=== PATIENT | female | born 1980 | race Caucasian/White ===

== ENCOUNTER 2017-02-08 20:23 | Emergency (ER) | payer SELFPAY ==
[2017-02-08] MEDS ORDERED: Lidocaine 1% w/Epinephrine 1:100K 20 ML VIAL ONE (20:40)
[2017-02-08] MEDS ORDERED: Cephalexin 500 MG CAP ONE (20:50)
== END 2017-02-08 21:11 | disposition home or self-care (01) ==
LOC: MADERS 20:23
DX: L72.0 Epidermal cyst (principal); J45.909 Unspecified asthma, uncomplicated; F17.210 Nicotine dependence, cigarettes, uncomplicated
CPT/HCPCS: 69000; 87070; 87205; J2001

== ENCOUNTER 2017-07-22 08:15 | Emergency (ER) | payer SELFPAY | END 2017-07-22 09:00 | disposition home or self-care (01) | LOC: MADERS 08:15 | DX: J20.9 Acute bronchitis, unspecified (principal); J45.909 Unspecified asthma, uncomplicated; F17.210 Nicotine dependence, cigarettes, uncomplicated | CPT/HCPCS: 99283 ==

== ENCOUNTER 2018-01-31 14:48 | Emergency (ER) | payer MEDICAID, SELFPAY ==
[~2018-01-31 14:48] MED LIST: Sodium Chloride 0.9% 1,000 ML BAG ONE
[2018-01-31 15:20] LABS: Bilirubin Negative (Negative); Blood, Urine Negative (Negative); Glucose, Urine (Dipstick) Negative (Negative); Leukocyte Negative (Negative); Nitrite Negative (Negative); Protein, Urine (Dipstick) Negative (Neg-Trace); Specific Gravity, Urine 1.015 (1.005-1.030); Urobilinogen 0.2 mg/dL (0.2-1.0); pH, Urine 7.5 (5.0-9.0)
[2018-01-31 15:22] LABS: Clarity Hazy (Clear)
[2018-01-31 15:24] LABS: Bacteria/HPF Rare-Few HPF (None Seen); RBC/HPF 0-3 HPF (0-3); WBC/HPF 0-3 HPF (0-3)
[2018-01-31 15:25] LABS: Pregnancy Test - Urine (BHCG) Negative (Negative); Pregu Control Background? CLEAR/WHITE (CLR/WHITE); Pregu Control Bar Appear? YES (CONTROL BAR); Specific Gravity 1.015 (1.002-1.036)
[2018-01-31] MEDS ORDERED: Ketorolac Tromethamine 30 MG/ML VIAL ONE (15:43)
[2018-01-31] MEDS ORDERED: Ondansetron HCl/PF 4 MG/2 ML Vial ONE (15:43)
--- NOTE | 2018-01-31 16:01 | CT ---
CT ABDOMEN AND PELVIS WITHOUT CONTRAST: Date: 01/31/18 Multiple axial tomograms obtained through abdomen and pelvis without IV enhancement. INDICATION: Abdominal pain. FINDINGS: Lung bases clear. Liver and spleen unremarkable. Pancreas unremarkable. Kidneys unremarkable. No hydronephrosis seen. No evidence of urinary tract calculus. Urinary bladder unremarkable. Small bowel loops appear normal. Appendix appears normal. Colon unremarkable. Images through the pelvis reveal a cyst in the right adnexa suggesting an ovarian cyst which measures up to 3.0 cm. No evidence of free fluid in the pelvis. IMPRESSION: A right adnexal cystic mass, presumably ovarian. There is evidence of a faint calcific density associ ated with the right adnexa which raises the question of a dermoid. I recommend correlation with serum HCG to exclude ectopic . If HCG is negative, consider further evaluation with elective pelv ic MRI to better define this right adnexal mass. POS: DONNY
[2018-01-31 16:02] LABS: #Basophils 0.1 thou/uL (0.0-0.2); #Eosinphils 0.4 thou/uL (0.0-0.7); #Lymphocytes 2.3 thou/uL (1.20-3.40); #Monocytes 0.6 thou/uL (0.11-0.59); #Neutrophils 4.2 thou/uL (1.40-6.50); %Basophils 1.4 % (0.0-1.0); %Eosinophils 4.8 % (0.0-10.0); %Lymphocytes 30.9 % (21.0-51.0); %Monocytes 7.8 % (0.0-10.0); %Neutrophils 55.1 % (42.0-75.0); Hemoglobin 13.2 g/dL (12.0-16.0); Mean Corpuscular HGB CONC 34.1 g/dL (32.0-36.0); Mean Corpuscular Hemoglobin 30.7 pg (27.0-31.0); Mean Corpuscular Volume 89.8 fl (81.0-99.0); Mean Platelet Volume 7.7 fL (7.4-10.4); Platelet Count 316 thou/uL (130-400); RBC Distribution Width 11.5 % (11.5-14.5); Red Blood Cell (RBC) Count 4.32 mill/uL (4.20-5.40); White Blood Cell (WBC) Count 7.5 thou/uL (4.8-10.8)
[2018-01-31 16:20] LABS: ALT (SGPT) 12 U/L (8-55); AST (SGOT) 8 U/L (5-34); Albumin 4.2 g/dL (3.5-5.0); Alkaline Phosphatase 45 U/L (40-150); Anion Gap 12 mmol/L (10-20); BUN (Urea Nitrogen) 7 mg/dL (7.0-18.7); Bilirubin, Total 0.2 mg/dL (0.2-1.2); Calc. Creatinine Clearance 0 mL/min (70-130); Calcium 9.3 mg/dL (7.8-10.44); Carbon Dioxide 25 mmol/L (22-29); Chloride 107 mmol/L (98-107); Estimated GFR-MDRD Greater than 90; Globulin 2.8 g/dL (2.4-3.5); Lipase 26 U/L (8-78); Potassium 3.4 mmol/L (3.5-5.1); Sodium 141 mmol/L (136-145)
[2018-01-31 16:40] LABS: Glucose 50 mg/dL (70-105)
[2018-01-31] MEDS ORDERED: Naproxen 500 MG TAB ONE (17:18)
[2018-01-31] MEDS ORDERED: Cipro 250 MG TAB ONE (17:18)
[2018-01-31] MEDS ORDERED: metroNIDAZOLE 250 MG TAB ONE (17:18)
== END 2018-01-31 17:30 | disposition home or self-care (01) ==
LOC: MADERS 14:48
DX: K57.92 Diverticulitis of intestine, part unspecified, without perforation or abscess without bleeding (principal); F17.210 Nicotine dependence, cigarettes, uncomplicated; J45.909 Unspecified asthma, uncomplicated; Z85.41 Personal history of malignant neoplasm of cervix uteri; Z79.899 Other long term (current) drug therapy
CPT/HCPCS: 74176; 80053; 81001; 81025; 82150; 83690; 84702; 85025; 87086; 96361; 96374; 96375; J1885; J2405; J7050

== ENCOUNTER 2018-03-02 13:04 | Emergency (ER) | payer MEDICAID | END 2018-03-02 15:40 | disposition home or self-care (01) | LOC: MADERS 13:04 | DX: S80.862A Insect bite (nonvenomous), left lower leg, initial encounter (principal); S80.861A Insect bite (nonvenomous), right lower leg, initial encounter; J45.909 Unspecified asthma, uncomplicated; F17.210 Nicotine dependence, cigarettes, uncomplicated; Z79.899 Other long term (current) drug therapy | CPT/HCPCS: 99282 ==